=== PATIENT | female | born 1940 | race Caucasian/White ===

== ENCOUNTER 2016-04-28 21:10 | Inpatient (IN) | payer MEDICARE, BC ==
--- NOTE | ~2016-04-28 | TOC ---
Unit #: [id number] #: [id number] Patient: WATSON LUGO [id number] [address] [address] [id number] I MR#: [id number] NAME: WATSON LUGO. ROOM: 316 Age: 75 Sex: F Admission Date: 04/28/2016 : 1940 Attending Physician: Deb Valdez M.D. Primary Care Physician: Delmis Becerril M.D. TRANSFER OF CARE SUMMARY DISCHARGE DIAGNOSES 1. Infected left hip, status post incision and drainage of the left wound and removal of a cable plate. Currently, she has a drain. 2. Postoperative acute hypercapnic, hypoxic respiratory failure, currently on 6 liters. 3. Toxic metabolic encephalopathy with change in mental status. 4. Acute kidney injury. 5. Chronic diastolic heart failure. 6. Chronic obstructive pulmonary disease exacerbation. 7. Chronic anticoagulation on Coumadin. 8. Hypertension. 9. Anemia. 10. Mild protein malnutrition. 11. Diabetes mellitus type 2, uncontrolled. 12. Hypocalcemia. 13. History of coronary artery disease, status post CABG and stent. 14. Hyperlipidemia. 15. Gastroesophageal reflux disease. 16. Depression. 17. Arthritis. 18. Degenerative joint disease. CONSULTANTS 1. Dr. Urban. 2. Dr. Dietrich. 3. Dr. De Leon. PROCEDURES Incision and drainage of the left wound and removal of cable plate and drain placed. DIAGNOSTIC STUDIES LABORATORY: Glucose 208. Wound cultures negative. ABG pH 7.38, pCO2 49, pO2 72. INR 1.3. WBC 8.1, hemoglobin 8.0, platelets 237. Sodium 135, potassium 4.6, glucose 212, creatinine 1.1. LFTs normal. Albumin 2.7, magnesium 1.6. BNP 208. HOSPITAL COURSE This is a 75-year-old admitted on 04/25/2016 because of infected left hip. Patient was seen by orthopedics, Dr. Santoro. The patient had incision and drainage and removal of cable plate. Currently drain is placed. Dr. Santoro is closely following. Unit #: [id number] #: [id number] Patient: WATSON LUGO Acute hypercapnic, hypoxic respiratory failure postop. She was BiPAP, currently off BiPAP. She is on [address] Dietrich is closely following. Toxic metabolic encephalopathy postop with change in mental status, most likely secondary to sedation and opiates. Currently, she is alert and oriented x3. Acute kidney injury, prerenal. The patient received IV fluids, currently stable. Chronic diastolic heart failure. The patient did receive IV Lasix preop and postop because of acute respiratory failure. Currently compensated. COPD exacerbation. The patient received DuoNeb and IV Solu-Medrol. Continue with IV Solu-Medrol. Chronic anticoagulation, not sure why she has sick sinus syndrome and she has pacemaker. Continue Coumadin as per Orthopedics postop instructions. Mild protein malnutrition. Continue with high protein diet. Dictated by... Dwaine Sweeney/paulino TD: 05/04/2016 20:56 JOB #: [id number] TRANSFER OF CARE SUMMARY Page 1 of 1 X Deb Valdez MD TRANSFER OF CARE SUMMARY
--- NOTE | ~2016-04-28 | CO ---
Unit #: [id number] #: [id number] Patient: WATSON GUTHRIE [id number] [address] [place], [place] [address] [id number] I MR#: [id number] NAME: WATSON GUTHRIE. ROOM: 473 Age: 75 Sex: F Admission Date: 04/28/2016 : 1940 Attending Physician: Deb aVldez M.D. Primary Care Physician: Delmis Becerril M.D. Consultation Date: 04/29/2016 CONSULTATION REPORT CHIEF COMPLAINT Left hip pain and wound drainage. HISTORY OF PRESENT ILLNESS Ms. Guthrie is a 75-year-old female, patient of my former partner, Dr. Dereck Acuna, who has a complicated history regarding her left hip. Apparently, this all started back in 01/2015, in which she sustained a left intertrochanteric femur fracture, where she was originally treated at [facility]. She was seen and treated by Dr. Janet Bar, for which she underwent a left hip intramedullary nailing. Per family reports, the patient is a poor historian. The lag screw cut out through the femoral head and she was seen by Dr. Dereck Acuna, who performed a total hip arthroplasty on 02/23/2015. She reports that she really never did well following the surgery. She essentially would only walk household distances with a walker. She saw Dr. Acuna apparently several times in the office; although, I do not have access to my office notes at this point. She continued to have problems with her left foot, where she developed a contracture and has had difficulty bearing weight. She had been seen by Dr. Joiner in [place], who did get x-rays of her foot and she was diagnosed with a fracture in her foot, which was treated nonoperatively. She continued to do somewhat poorly until it seemed to get worse about 5 to 6 months ago, where she had a urinary tract infection, that subsequently receded her left hip per family report. Apparently, there was some difficulty getting into Dr. Acuna's office. She was placed on antibiotics for three weeks and her urinary tract infection weighs as well as hip improved, so the family elected that point the patient wished not to be messed with the hip, since she was doing better and was not seen by an orthopedic surgeon at that time. She apparently saw Dr. Joiner from [place], who recommend that the patient followup with Dr. Acuna. Last week ago on Sunday as her pgtvbusz-aa-ngp notes that the left leg was turning red in nature, she told her to keep an eye on it. Then, they got acutely worse on Sunday, where the redness gotten much more severe and the patient felt a pop in her hip and she could no longer walk. She was sent to [facility], where she was subsequently admitted and the orthopedic surgeon there were requested that she be transferred out to fellowship trained reconstructive surgeon regarding her infected total hip arthroplasty. She was found to have a draining sinus tract, significant swelling, and now complains of left additional foot pain. Dr. Santoro was contacted yesterday and accepted the patient for transfer with Medicine to admit. PAST MEDICAL HISTORY Significant for a history of coronary artery disease, status post coronary artery bypass and stent placement; hypertension; dyslipidemia; Unit #: [id number] #: [id number] Patient: CASE,WATSON Newton gastroesophageal reflux disease; depression; diabetes; arthritis; degenerative disk disease; arrhythmia. PAST SURGICAL HISTORY Includes coronary artery bypass grafting, appendectomy, hysterectomy, cholecystectomy, history of pacemaker ICD, history of left hip intramedullary nailing with subsequent failure to conversion total hip arthroplasty as noted above. SOCIAL HISTORY Used to smoke for 50 years one pack daily. She quit two years ago. Denies alcohol, illicit, or drug use. FAMILY HISTORY Noncontributory. HOME MEDICATIONS Reviewed include allopurinol, Amaryl, Coumadin, Bactrim, Tylenol, K-Dur, Coreg, Lasix, Remeron, amlodipine, Prozac, omeprazole, Zocor, and aspirin. REVIEW OF SYSTEMS Positive for left hip and left ankle pain. Other 12 systems are currently negative. PHYSICAL EXAMINATION GENERAL: Demonstrates an elderly female, who is currently not in any acute distress. She is awake and oriented x3; though, she is a poor historian. VITAL SIGNS: She is afebrile. Vital signs are stable. HEENT: Normocephalic and atraumatic. Extraocular movements intact. NECK: Trachea is midline. HEART: Regular rate and rhythm. ABDOMEN: Soft, nontender, nondistended. EXTREMITIES: Left hip demonstrates a draining sinus tract. It measures approximately 4 x 3 cm in size. She has contractures of her left foot in Equinus position and adducted. She is unable to dorsiflex to bring it back to neutral. She has significant tenderness to palpation over the medial border of her forefoot area. The sensation is intact distally. She is neurovascularly intact distally. IMPRESSION Infected left total hip arthroplasty with left foot pain with history of a remote fracture possible septic forefoot. PLAN I discussed the patient's history with her tysvzwqb-pr-ltt and got some additional history as noted above. We will go ahead and check some x-rays of her left hip. Check appropriate blood work, CRP, and sedimentation rate. We will continue with IV antibiotics. We reversed her Coumadin. Give her dose of vitamin K, and bridge her with Lovenox until surgery. Planned surgery date will be on Sunday afternoon by Dr. Santoro for resection arthroplasty and placement of antibiotic cement spacer. She is a minimal ambulator anyway since her hip reconstruction surgery. We will go ahead and check a chest x-ray, urine culture, and place a Hernadez catheter. Infectious Disease is already following, also order a PICC line to be placed. Thank you for the consultation. Unit #: [id number] #: [id number] Patient: PARISH,WATSON Newton Dictated by... Dwaine Newsome/oscar TD: 04/29/2016 13:17 JOB #: [id number] CONSULTATION REPORT Page 1 of 1 X Zheng De Leon MD CONSULTATION REPORT
--- NOTE | ~2016-04-28 | CR150 ---
[facility] A Service of [facility] & [facility] RADIOLOGY TEXT RESULTS PATIENT: WATSON LUGO LOCATION: [facility] 473-01 : 41 UNIT #: [id number] AGE: [address]: Deb Valdez MD SEX: F ORDER DR: [id number] [facility] [address] [place], [place] [address] [id number] I MR#: [id number] Acc #: [id number] NAME: WATSON LUGO. : 1940 SEX: F STUDY DATE/TIME: 04/29/2016 14:17 UNIT: [facility] ROOM: [facility] STUDY DESCRIPTION: CR Hip Min 2 Views Lt Attending Physician: Deb Valdez M.D. Ordering Physician: Zheng De Leon M.D. Primary Care Physician: Delmis Becerril M.D. MEDICAL IMAGING REPORT This report is preliminary unless electronic signature is present EXAM Left hip HISTORY 75-year-old female pain in left hip x1 week history states osteomyelitis. FINDINGS AP pelvis and cross-table lateral view of the left hip and pelvis demonstrates postoperative changes of left total hip arthroplasty. Femoral and acetabular components appear in expected position and alignment. There is also a claw fixation device overlying the greater trochanter and lateral hip with 2 cerclage wires. There is heterotopic ossification superior to the greater trochanter. Linear ossification is noted extending inferior from the hip joint. It is unclear whether this represents the remnants of a pelvic fracture or represents heterotopic ossification. This may be better assessed with CT if clinically indicated. Soft tissue calcifications also seen in the medial left thigh near the groin. Arterial vascular calcifications noted. Generalized osteopenia. IMPRESSION 1. Status post left total hip arthroplasty with a fixation device also within the proximal left femur. No evidence of instrumentation failure periprosthetic fracture or loosening. 2. Well-defined ossification along the inferior aspect of the left hip joint adjacent to the pubic bone. It is unclear whether this represents the sequelae of old fracture or represents heterotopic ossification. 3. No CT findings to suggest osteomyelitis though conventional radiographs are relatively insensitive. Dictated by... Sienna Sher M.D. [facility] A Service of [facility] RADIOLOGY TEXT RESULTS PATIENT: WATSON LUGO LOCATION: [facility] 473-01 : 41 UNIT #: [id number] AGE: [address]: Deb Valdez MD SEX: F ORDER DR: THIS IS AN ELECTRONICALLY VERIFIED REPORT Sienna Sher M.D. at 04/30/2016 10:51 PM SHARONA/natividad TD: 04/30/2016 05:36 JOB #: [id number] MEDICAL IMAGING REPORT Page 1 of 1 COPY
--- NOTE | ~2016-04-28 | CO ---
Unit #: [id number] #: [id number] Patient: WATSON LUGO [id number] [address] [address] [id number] I MR#: [id number] NAME: WATSON LUGO. ROOM: 473 Age: 75 Sex: F Admission Date: 04/28/2016 : 1940 Attending Physician: Deb Valdez M.D. Primary Care Physician: Delmis Becerril M.D. Consultation Date: 04/29/2016 CONSULTATION REPORT REASON FOR CONSULTATION Left hip infection. HISTORY OF PRESENT ILLNESS The patient is a 75-year-old female with multiple medical problems, including multiple left hip surgeries, last one was a year ago which according to the patient had a prosthetic joint placement. She was doing fine until about 3 weeks ago when left foot started to hurt, does not remember any acute injury. This injury started putting more pressure on the hip and then the hip started to hurt and then it became inflamed with increased pain, redness, swelling, and a small protrusion in the skin. Did not have any fevers chills, cough, congestion, nausea, vomiting, or diarrhea. She was admitted to [facility], but because of increased level of care including possible surgery on the left hip, she was transferred to [facility]. Dr. Santoro has been asked to see the patient. She has been on vancomycin and cefepime. During her stay at [facility], she was also found out to have acute renal injury and hyperkalemia. Right now, she is lying comfortably in bed and complaining of left hip pain. No nausea, vomiting, diarrhea, fevers, chills, cough, or congestion. PAST MEDICAL HISTORY 1. Coronary artery disease, status post coronary artery bypass grafting. 2. Hypertension. 3. Hyperlipidemia. 4. Gastroesophageal reflux disease. 5. Depression. 6. Diabetes. 7. Arthritis. 8. Degenerative joint disease. 9. Anticoagulation, reasons unknown. 10. Appendectomy. 11. Hysterectomy. 12. Multiple left hip surgeries. 13. History of pacemaker and AICD placement. 14. Cholecystectomy. SOCIAL HISTORY Noncontributory. FAMILY HISTORY Noncontributory. ALLERGIES Unit #: [id number] #: [id number] Patient: CASE,WATSON Newton To penicillin, reaction are unknown, but seems to be tolerating cefepime fairly well. CURRENT MEDICATIONS List reviewed. Antibiotics include vancomycin and cefepime. PHYSICAL EXAMINATION GENERAL: No distress. VITAL SIGNS: Temperature 98.3, pulse 88, respirations 20, blood pressure 152/47. HEENT: Unremarkable. Pupils are round, equal, and reactive to light and accommodation. Extraocular muscles are intact. CHEST: Clear to auscultation. HEART: Normal S1, S2. ABDOMEN: Soft, nontender. EXTREMITIES: Show left hip previous incision site in the middle. There is an outpouching with fluctuation, significant erythema, induration, and tenderness was noted. No open area or bleeding or drainage at this time. It was noted that the left ankle and left foot shows an obvious deformity with hallux avulsion and decreased range of motion on the ankle joint, although, no tenderness, swelling, erythema, or warmth was noted. DIAGNOSTIC STUDIES LABORATORY RESULTS: BUN 21, creatinine 1.1. LFTs are normal. Lactic acid 0.8. WBC 9.2, hemoglobin 10.3, platelets 251. No cultures so far. Records from [facility] were reviewed. ASSESSMENT Left hip prosthetic joint infection. PLAN At this time, the patient is tolerating appropriate antibiotics with empiric coverage with vancomycin and cefepime. We will monitor creatinine closely. Pharmacy is following for vancomycin dosing. We will get ESR and CRP. Follow up on orthopedic recommendations. Most likely, he will end up getting incision and debridement with the possibility of hardware explant. Further recommendation depending upon the course. I would like thank Dr. Nichols for asking us to participate in the care of this patient. We will follow this patient along with you. Dictated by... Dwaine Bhatti TD: 04/30/2016 00:48 JOB #: [id number] Unit #: [id number] #: [id number] Patient: CASE,WATSON Newton CONSULTATION REPORT Page 1 of 1 X Slade Urban MD CONSULTATION REPORT
--- NOTE | ~2016-04-28 | CR71 ---
[facility] A Service of [facility] & [facility] RADIOLOGY TEXT RESULTS PATIENT: WATSON LUGO LOCATION: [place] [id number] : 41 UNIT #: [id number] AGE: [address]: Deb Valdez MD SEX: F ORDER DR: [id number] [facility] [address] [place], [place] [address] [id number] I MR#: [id number] Acc #: [id number] NAME: WATSON LUGO. : 1940 SEX: F STUDY DATE/TIME: 05/03/2016 4:33 UNIT: [facility] ROOM: [facility] STUDY DESCRIPTION: CR Chest Single View Attending Physician: Deb Valdez M.D. Ordering Physician: Deb Valdez M.D. Primary Care Physician: Delmis Becerril M.D. MEDICAL IMAGING REPORT This report is preliminary unless electronic signature is present EXAM Frontal chest, 05/03/2016 INDICATION Low O2 sats in a 75-year-old female tonight, short of breath. TECHNIQUE Frontal chest COMPARISON 04/29/2016 FINDINGS New right-sided PICC line present and the tip extends to the cavoatrial junction level. Cardiac silhouette is enlarged but stable. Lung volumes are low. Bibasilar atelectasis or infiltrates, right greater than left. Small right effusion. Calcified granulomas are present. No pneumothorax. Chronic rib deformities on the left. IMPRESSION 1. New right-sided PICC line tip extends to the cavoatrial junction. No pneumothorax. 2. Cardiomegaly without distinct volume overload. 3. Right greater than left opacities suspicious for pneumonia or at least dense atelectasis on the right. Small right effusion. 4. Chronic rib deformities on the left. Dictated by... Cristopher Gonzales M.D. THIS IS AN ELECTRONICALLY VERIFIED REPORT Cristopher Gonzales M.D. at 05/03/2016 9:54 PM REECE/xochilt [facility] A Service of [facility] & [facility] RADIOLOGY TEXT RESULTS PATIENT: WATSON LUGO LOCATION: [address] : 41 UNIT #: [id number] AGE: [address]: Deb Valdez MD SEX: F ORDER DR: TD: 05/03/2016 08:33 JOB #: [id number] MEDICAL IMAGING REPORT Page 1 of 1 COPY
--- NOTE | ~2016-04-28 | HP ---
Unit #: [id number] #: [id number] Patient: PARISH,WATSON Newton [address] [place], [place] [address] [id number] I MR#: [id number] NAME: PARISH, WATSON Newton. ROOM: 473 Age: 75 Sex: F Admission Date: 04/28/2016 : 1940 Attending Physician: Deb Valdez M.D. Primary Care Physician: Delmis Becerril M.D. HISTORY AND PHYSICAL TENTATIVE REPORT CHIEF COMPLAINT Infected left hip. 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 She was admitted in the [facility] with infected hip with the diagnosis of infection around the left hip joint with acute kidney injury and hyperkalemia and the patient was seen, also, by orthopaedic surgeon who were there and that they felt the patient needs to be transferred to (1) hospital and they talked to the many different orthopaedic surgeons in [place] and [facility], [facility]. The patient was not accepted, eventually they talked to Dr. Lance Santoro, orthopaedic surgeon who accepted the patient here and then HIPS was called and the patient was admitted to HIPS service and she transferred here from [facility]. She is complaining of left hip and left leg pain but denies any other complaint. No chest pain. No nausea. No vomiting. No fever. PAST MEDICAL HISTORY 1. History of coronary artery disease previous coronary artery bypass graft and stent. 2. Hypertension. 3. Dyslipidemia. 4. Gastroesophageal reflux disease. 5. Depression. 6. Diabetes. 7. Arthritis. 8. Degenerative joint disease. 9. History of chronic anticoagulation, she does not know detail why she takes Coumadin. PAST SURGICAL HISTORY 1. History of coronary artery bypass grafting. 2. Appendectomy. 3. Hysterectomy. 4. Cholecystectomy. 5. History of pacemaker, AICD. Unit #: [id number] #: [id number] Patient: CASE,WATSON Newton SOCIAL HISTORY She used to smoke for fifty years, one pack daily. She said she quit two years ago, denies alcohol, denies illicit drug use. FAMILY HISTORY Noncontributory to pertinent case. HOME MEDICATIONS Is the followin. Allopurinol 100 mg daily 2. Amaryl 4 mg daily 3. Coumadin 2.5 mg daily 4. Bactrim DS one tablet b.i.d. 5. Tylenol 100 mg p.o. daily 6. K-Dur 20 mEq p.o. daily 7. Coreg 12.5 twice a day 8. 10 mg twice a day 9. Lasix 40 mg daily 10. Remeron 15 mg daily 11. Amlodipine 5 mg daily 12. Prozac 10 mg daily 13. Omeprazole 40 mg daily 14. Zocor 2 mg daily 15. Aspirin 81 mg daily REVIEW OF SYSTEMS Negative except as in history of present illness. PHYSICAL EXAMINATION GENERAL: Elderly female lying in the bed comfortably, currently not in any distress. She is alert, awake, and oriented x3, comfortable, not in any distress. VITAL SIGNS: Current vitals are the following, temperature 98.2, heart rate 78, respiratory rate 20, blood pressure 115/45, and oxygen 92%. HEENT EXAMINATION: Pupils equal reactive to light and accommodation. Head: Normocephalic and atraumatic. NECK: Supple. No jugular venous distention. HEART: S1 and S2, regular rate and rhythm. ABDOMEN: Soft, nontender, and nondistended. Bowel sounds are positive. EXTREMITIES: Inspection normal. No cyanosis, no clubbing, and no edema. NEUROLOGIC: No focal neurologic deficit. LEFT HIP: The left hip has a draining wound on left side. Laboratory workup is not done so far here. ASSESSMENT/PLAN 1. Infected left hip replacement with likely abscess formation, orthopaedic, Dr. Santoro to see, will continue with antibiotic, she was on initially in the [facility] on Zosyn and vancomycin, Zosyn which was discontinued and she was started on cefepime and vancomycin, continue vancomycin and cefepime, and ortho to evaluate, ID consult to also see. 2. Recent acute kidney injury in the [facility] start the patient on IV fluids and recheck electrolytes in the morning. 3. Hyperkalemia, potassium was 6.1 in the [facility] which has been corrected and will check the BMP. 4. History of coronary artery disease, previous coronary artery bypass Unit #: [id number] #: [id number] Patient: CASE,WATSON Newton grafting. 5. Hypertension. 6. Dyslipidemia. 7. Gastroesophageal reflux disease. 8. Depression. 9. Diabetes, will hold glimepiride and place on sliding scale. 10. Degenerative joint disease. 11. History of chronic anticoagulation for possibility of surgical intervention will hold the Coumadin. Repeat INR in the morning. Dictated by Dwaine Hernandez TD: 04/29/2016 08:54 JOB #: [id number] HISTORY AND PHYSICAL Page 1 of 1 X X HISTORY AND PHYSICAL
--- NOTE | ~2016-04-28 | CR144 ---
[facility] A Service of [facility] & [facility] RADIOLOGY TEXT RESULTS PATIENT: WATSON LUGO LOCATION: [facility] 473-01 : 41 UNIT #: [id number] AGE: [address]: Deb Valdez MD SEX: F ORDER DR: [id number] [facility] [address] [place], [place] [address] [id number] I MR#: [id number] Acc #: [id number] NAME: WATSON LUGO. : 1940 SEX: F STUDY DATE/TIME: 05/02/2016 14:33 UNIT: [facility] ROOM: [facility] STUDY DESCRIPTION: CR Hip 1 View Lt Attending Physician: Deb Valdez M.D. Ordering Physician: Lance Santoro M.D. Primary Care Physician: Delmis Becerril M.D. MEDICAL IMAGING REPORT This report is preliminary unless electronic signature is present EXAM Left hip one-view HISTORY Postop hip surgery. FINDINGS Single AP view of the left hip demonstrates total hip arthroplasty with components in satisfactory position. Surgical drain overlies the lateral margin of the hip and there are surgical skin pastor lateral to the hip. No fractures identified. Mild generalized demineralization. IMPRESSION Satisfactory postop appearance of left hip arthroplasty. Hip alignment is satisfactory. Dictated by... Srinath Mendoza M.D. THIS IS AN ELECTRONICALLY VERIFIED REPORT Srinath Mendoza M.D. at 05/02/2016 11:36 PM DFL/natividad TD: 05/02/2016 17:24 JOB #: [id number] MEDICAL IMAGING REPORT Page 1 of 1 COPY
--- NOTE | ~2016-04-28 | CR63 ---
[facility] A Service of [facility] RADIOLOGY TEXT RESULTS PATIENT: WATSON LUGO LOCATION: [facility] 473- : 41 UNIT #: [id number] AGE: [address]: Deb Valdez MD SEX: F ORDER DR: [id number] [facility] [address] [facility] [place], [place] [address] [id number] I MR#: [id number] Acc #: [id number] NAME: WATSON LUGO. : 1940 SEX: F STUDY DATE/TIME: 04/29/2016 14:31 UNIT: [facility] ROOM: [facility] STUDY DESCRIPTION: CR Chest 2 View Attending Physician: Deb Valdez M.D. Ordering Physician: Zheng De Leon M.D. Primary Care Physician: Delmis Becerril M.D. MEDICAL IMAGING REPORT This report is preliminary unless electronic signature is present EXAM 2 views of the chest COMPARISON May 14, 2013 May 12, 2013 INDICATIONS 75-year-old female with dyspnea for 1 week. FINDINGS There has been interval placement of a dual lead left chest pacemaker/defibrillator device. No evidence of complication is seen. Changes of median sternotomy and CABG again noted. Evaluation of the chest is limited by rightward patient rotation. There is likely persistent cardiomegaly. There is increased bilateral hilar fullness with slight increase in interstitial prominence throughout the lungs perhaps reflecting mild pulmonary vascular congestion/early interstitial edema. No evidence of pneumothorax, pleural effusion or consolidative pneumonia. IMPRESSION Cardiomegaly with increasing prominence of the pulmonary interstitium, perhaps reflecting mild pulmonary vascular congestion and/or pulmonary edema. No pleural effusion or evidence of acute pneumonia. Dictated by... Onel Cornelius M.D. THIS IS AN ELECTRONICALLY VERIFIED REPORT Onel Cornelius M.D. at 05/02/2016 12:25 AM AUSTEN/natividad TD: 04/30/2016 05:09 [facility] A Service of [facility] RADIOLOGY TEXT RESULTS PATIENT: WATSON LUGO LOCATION: [facility] 473-01 : 41 UNIT #: [id number] AGE: [address]: Deb Valdez MD SEX: F ORDER DR: JOB #: [id number] MEDICAL IMAGING REPORT Page 1 of 1 COPY
--- NOTE | ~2016-04-28 | OR ---
Unit #: [id number] #: [id number] Patient: WATSON LUGO [id number] [address] [place], [place] [address] [id number] I MR#: [id number] NAME: WATSON LUGO ROOM: [facility] Date of Procedure: 05/02/2016 Admission Date: 04/28/2016 Surgeon: Lance Santoro M.D. : 1940 Attending Physician: Deb Valdez M.D. Primary Care Physician: Delmis Becerril M.D. OPERATIVE REPORT PREOPERATIVE DIAGNOSIS Infected left hip. POSTOPERATIVE DIAGNOSIS Infected cable plate, the left hip. PROCEDURE PERFORMED Incision and drainage of hip wound and removal of cable plate. ASSISTANTS Giovanni and Ciaran. ANESTHESIA General. ESTIMATED BLOOD LOSS 300. DESCRIPTION OF PROCEDURE The patient was brought to the operating room, given a general anesthetic, placed in decubitus position with the left side up. Left hip was prepped and draped. She had a draining sinus. After this was done, the incision was opened. We ellipse the sinus tract and followed this down to the [place] cable plate on the lateral side of the femur. The two distal cables were cut and the plate was removed. After this was done, the area was debrided completely, soaked in Betadine and then irrigated with 3000 mL of bacitracin. The posterior capsule had not been opened. I could not find an area leading into the joint. I tried to aspirate the joint with an 18-gauge spinal needle and could feel the prosthesis, but there was no fluid in the joint. We then elected at this point because of her age and the possibility that the joint itself was not infected, just the plate. We elected to stop the procedure here, so the wound was closed over a drain using 0 and 2-0 Vicryl and pastor in the skin and her general anesthetic reversed. I did explain to the family that if her sedimentation rate and CRP do not come down or she continues to have problems, then we would have to remove the prosthesis from the left hip, but I elected at this point to stop just in case the hip joint itself was not infected. baking assistant, Jeff Davila was present throughout the entire case. Dictated by... Unit #: [id number] #: [id number] Patient: PARISH,WATSON Newton Dwaine Pérez/oscar TD: 05/03/2016 02:33 JOB #: [id number] OPERATIVE REPORT Page 1 of 1 X Lance Santoro MD X PROCEDURE OPERATIVE NOTE
--- NOTE | ~2016-04-28 | DS ---
Unit #: [id number] #: [id number] Patient: WATSON LUGO [id number] [address] [address] [id number] I MR#: [id number] NAME: WATSON LUGO. ROOM: 316 Age: 75 Sex: F Admission Date: 04/28/2016 : 1940 Discharge Date: 05/12/2016 Attending Physician: Kristina Still M.D. Primary Care Physician: Delmis Becerril M.D. DISCHARGE SUMMARY FINAL DIAGNOSES 1. Infected left hip, status post incision and drainage and removal of cable plate. 2. Postop acute hypercapnic/hypoxic respiratory failure, on oxygen. 3. Toxic metabolic encephalopathy. 4. Acute kidney injury. 5. Chronic diastolic heart failure. 6. Chronic obstructive pulmonary disease. SECONDARY DIAGNOSES 1. Chronic anticoagulation, on Coumadin. 2. Hypertension. 3. Anemia. 4. Protein calorie malnutrition. 5. Diabetes mellitus type 2, uncontrolled. 6. Hypocalcemia. 7. History of coronary artery disease, status post coronary artery bypass graft and stent. 8. Hyperlipidemia. 9. Gastroesophageal reflux disease. 10. Depression. 11. Arthritis. 12. Degenerative joint disease. CONSULTS 1. Dr. Urban - Infectious Disease. 2. Dr. Dietrich - Pulmonary. 3. Dr. De Leon - Orthopedics. PROCEDURE She had an I and D of the left hip wound and removal of cable plate and a drain was placed. HOSPITAL COURSE 75-year-old admitted on 04/28/16 because of infected left hip. The patient was seen by orthopedics, Dr. Santoro. The patient ended up having an I and D and removal of cable plate. She has been seen in conjunction with infectious disease, Dr. Urban and Dr. Abdul. Dr. Abdul asked patient to continue vancomycin IV as well as cefepime IV through 06/08/16. Anemia: Hemoglobin was somewhat stable. H and H done today, the day of discharge, is 8.5. Toxic metabolic encephalopathy: This was perioperatively and this seems Unit #: [id number] #: [id number] Patient: WATSON LUGO to have improved at this time. For her acute hypoxic/hypercapnic respiratory failure, postoperatively she was on BiPAP and she has been seen by pulmonary and is currently stable at this time. She also had diastolic heart failure which did play to her hypoxic respiratory failure for which she had diuretics as well. She is currently clinically anticoagulated and probably has multiple risk factors. However, she does have a pacemaker for sick sinus syndrome. INR yesterday was 1.6. Will check a stat PT/INR today. She will continue on 2/5 mg of Coumadin and this will be managed by the rehab physician. She was evaluated, suitable and stable for discharge. She will be discharged in stable condition. MEDICATIONS Medications on discharge include: 1. Percocet 5/325, one tablet p.o. q.6 hourly p.r.n. 2. Combivent inhaler q.6 p.r.n. shortness of air. 3. Combivent mini nebs 3 mL twice daily. 4. Prednisone 10 mg p.o. daily. 5. Tylenol 1000 mg p.o. at bedtime, 325 mg p.o. q.4 hourly p.r.n. 6. Coumadin 2.5 mg p.o. daily. 7. Prozac 10 mg p.o. daily. 8. Remeron 15 mg p.o. daily. 9. Benadryl 25 mg to 50 mg p.o. q.6 hourly p.r.n. itching. However, this drug is on the Beers list and should be used only very judiciously. 10. Coreg 12.5 mg p.o. twice daily. 11. Norvasc 5 mg p.o. daily. 12. Bisacodyl 10 mg pr daily p.r.n. constipation and 5 mg p.o. twice daily p.r.n. constipation. 13. Senokot-S, one tablet p.o. twice daily. 14. Milk of magnesia 30 mL q.6 hours p.r.n. constipation. 15. Lasix 40 mg p.o. daily. 16. Zocor 20 mg p.o. daily. 17. Lisinopril 10 mg p.o. twice daily. 18. Zyloprim 100 mg p.o. daily. 19. Aspirin 81 mg p.o. daily. 20. Omeprazole 40 mg p.o. daily. 21. Potassium 20 mEq p.o. daily. 22. Amaryl 4 mg p.o. before breakfast. 23. Florastor 250 mg p.o. b.i.d. for six weeks. She will be discharged in stable condition. Time spent coordinating discharge is about 40 minutes. Dictated by... Dwaine Marcelo Unit #: [id number] #: [id number] Patient: WATSON LUGO TD: 05/12/2016 12:48 JOB #: [id number] DISCHARGE SUMMARY Page 1 of 1 X Kristina Still MD X DISCHARGE SUMMARY
--- NOTE | ~2016-04-28 | CR126 ---
[facility] A Service of [facility] & [facility] RADIOLOGY TEXT RESULTS PATIENT: WATSON LUGO LOCATION: [facility] 473-01 : 41 UNIT #: [id number] AGE: [address]: Deb Valdez MD SEX: F ORDER DR: [id number] [facility] [address] [place], [place] [address] [id number] I MR#: [id number] Acc #: [id number] NAME: WATSON LUGO. : 1940 SEX: F STUDY DATE/TIME: 04/29/2016 14:23 UNIT: [facility] ROOM: [facility] STUDY DESCRIPTION: CR Foot Complete Min 3 View Lt Attending Physician: Deb Valdez M.D. Ordering Physician: Slade Urban M.D. Primary Care Physician: Delmis Becerril M.D. MEDICAL IMAGING REPORT This report is preliminary unless electronic signature is present EXAM 3 views of the left foot COMPARISON None. INDICATION 75-year-old female with left foot pain for 1 week. No known injury. FINDINGS Exam is markedly limited by severe osteopenia. Exam is also limited by imaging with toes extended. No evidence of acute fracture, dislocation or osteomyelitis is seen on the current exam. IMPRESSION Exam is markedly limited by diffuse osteopenia. If persistent concern for fracture or osteomyelitis, consider CT and/or MRI. No definite acute abnormality of the foot is seen on current exam. Dictated by... Onel Cornelius M.D. THIS IS AN ELECTRONICALLY VERIFIED REPORT Onel Cornelius M.D. at 05/02/2016 12:24 AM AUSTEN/natividad TD: 04/30/2016 04:58 JOB #: [id number] MEDICAL IMAGING REPORT Page 1 of 1 COPY
--- NOTE | ~2016-04-28 | CT90 ---
[facility] A Service of [facility] & [facility] RADIOLOGY TEXT RESULTS PATIENT: WATSON LUGO LOCATION: [facility] 473-01 : 41 UNIT #: [id number] AGE: [address]: Deb Valdez MD SEX: F ORDER DR: [id number] [facility] [address] [address] [facility] [place], [place] [address] [id number] I MR#: [id number] Acc #: [id number] NAME: WATSON LUGO. : 1940 SEX: F STUDY DATE/TIME: 04/30/2016 16:44 UNIT: [facility] ROOM: [facility] STUDY DESCRIPTION: CT Lower Ext Lt W Cont Attending Physician: Deb Valdez M.D. Ordering Physician: Zheng De Leon M.D. Primary Care Physician: Delmis Becerril M.D. MEDICAL IMAGING REPORT This report is preliminary unless electronic signature is present EXAM CT left lower extremity with contrast HISTORY Left foot pain for 1 week. No injury. Evaluate for cellulitis. TECHNIQUE This CT exam was performed with one or more of the following radiation dose reduction techniques: automatic exposure control, adjustment of mA and/or kV according to patient size, and iterative reconstruction. FINDINGS Thin section axial images were performed through the left foot following IV contrast. Multiplanar reconstructed images reviewed at a workstation. Examination demonstrates deformity of the foot with forefoot varus. Generalized osteopenia. No discrete fracture. Nonspecific sclerosis noted in multiple bones to include the talus and medial cuneiform nonspecific, potentially could represent areas of bone infarction. Mild soft tissue swelling, edema and skin thickening in the lower extremity nonspecific could be indicative of cellulitis. No focal fluid collections. Visualized ankle tendons unremarkable. IMPRESSION 1. Generalized osteopenia lower extremity may be related to underlying osteoporosis. 2. No evidence of an occult fracture. 3. Generalized soft tissue swelling and edema lower extremity could be indicative of cellulitis but no drainable fluid collection or abscess. Dictated by... Sienna Shre M.D. THIS IS AN ELECTRONICALLY VERIFIED REPORT [facility] A Service of [facility] & [facility] RADIOLOGY TEXT RESULTS PATIENT: WATSON LUGO LOCATION: [place] [address] : 41 UNIT #: [id number] AGE: [address]: Deb Valdez MD SEX: F ORDER DR: Sienna Sher M.D. at 05/01/2016 10:06 AM Leann TD: 05/01/2016 09:11 JOB #: [id number] MEDICAL IMAGING REPORT Page 1 of 1 COPY
--- NOTE | ~2016-04-28 | XA166 ---
[facility] A Service of [facility] RADIOLOGY TEXT RESULTS PATIENT: WATSON LUGO LOCATION: [facility] 473-01 : 41 UNIT #: [id number] AGE: [address]: Deb Valdez MD SEX: F ORDER DR: [id number] [facility] [address] [facility] [place], [place] [address] [id number] I MR#: [id number] Acc #: [id number] NAME: WATSON LUGO. : 1940 SEX: F STUDY DATE/TIME: 05/01/2016 12:04 UNIT: [facility] ROOM: [facility] STUDY DESCRIPTION: XA PICC Line Placement WO Port Attending Physician: Deb Valdez M.D. Ordering Physician: Zheng De Leon M.D. Primary Care Physician: Delmis Becerril M.D. MEDICAL IMAGING REPORT This report is preliminary unless electronic signature is present EXAM Right-sided PICC line placement. INDICATIONS Need for IV access in a patient with cellulitis of the left lower extremity and foot pain for 1 week PRE-PROCEDURE The procedure was explained to the patient and/or patient eligibility services representative including risks, benefits, potential complications and potential for alternative forms of treatment. Informed consent was obtained, and prior to initiating the procedure a formal timeout procedure was performed. PROCEDURE Using full standard sterile barrier technique, including caps, gowns, gloves, masks, as well as sterile skin preparation and standard sterile draping, the right arm was prepped and draped in the usual fashion, and real-time sterile ultrasound guidance was used to localize an arm vein and to confirm vessel patency. A hard copy ultrasound image was recorded. After local anesthesia with 1% Xylocaine, the vein was punctured using real-time sterile ultrasound guidance, and an 0.018 guidewire was advanced into the superior vena cava, using fluoroscopic guidance. A 4-Honduran single-lumen PICC was then measured and deployed with the tip positioned in the superior vena cava. The position of the line was documented with a radiographic image. The line was secured in place with an adhesive dressing and an antibiotic patch was applied. Total fluoro time was 0.1 minutes. AKA was 1 mGy. IMPRESSION Successful placement of a 4-Honduran single-lumen PowerPICC via the arm under ultrasound and fluoroscopic guidance. The tip of the PICC is in good position in the superior vena cava. [facility] A Service of [facility] RADIOLOGY TEXT RESULTS PATIENT: WATSON LUGO LOCATION: [place] [address] : 41 UNIT #: [id number] AGE: [address]: Deb Valdez MD SEX: F ORDER DR: Dictated by... Maria L Robbins M.D. THIS IS AN ELECTRONICALLY VERIFIED REPORT Maria L Robbins M.D. at 05/02/2016 3:43 PM AFF/bd TD: 05/02/2016 12:06 JOB #: [id number] MEDICAL IMAGING REPORT Page 1 of 1 COPY
--- NOTE | ~2016-04-28 | CO ---
Unit #: [id number] #: [id number] Patient: WATSON LUGO [id number] [address] [address] [id number] I MR#: [id number] NAME: WATSON LUGO. ROOM: [facility] Age: 75 Sex: F Admission Date: 04/28/2016 : 1940 Attending Physician: Deb Valdez M.D. Primary Care Physician: Delmis Becerril M.D. CONSULTATION REPORT REASON FOR CONSULTATION Critical care management, respiratory failure. CHIEF COMPLAINT Shortness of breath and hypoxia. This patient basically is a 75-year-old female who has a past medical history significant for likely COPD and congestive heart failure, presented with infected hip and has had a surgery done with revision. Had a left hip surgery, found to be hypoxic and is in respiratory acidosis this morning. I am seeing the patient at bedside. She is on BiPAP and complaining of shortness of breath. REVIEW OF SYSTEMS Unobtainable because of patient being on BiPAP. PAST MEDICAL HISTORY 1. Coronary artery disease. 2. Hypertension. 3. Dyslipidemia. 4. Gastroesophageal reflux disease. 5. Depression. 6. Diabetes. 7. Arthritis. 8. Degenerative joint disease. 9. History of chronic anticoagulation. SURGICAL HISTORY 1. Coronary artery bypass. 2. Appendectomy. 3. Pacemaker. 4. AICD placement. SOCIAL HISTORY Positive for smoking. No alcohol, no drug abuse. FAMILY HISTORY None as per record. MEDICATIONS 1. Allopurinol. 2. Amaryl. 3. Coumadin. 4. Bactrim. Unit #: [id number] #: [id number] Patient: WATSON LUGO 5. Tylenol. 6. K-Dur. 7. Coreg. 8. Lasix. 9. Remeron. 10. Amlodipine. 11. Prozac. 12. Omeprazole. 13. Zocor. 14. Aspirin. REVIEW OF SYSTEMS Positive pallor. No edema, no cyanosis, no jaundice. The rest as per History of Present Illness. The rest of the twelve point review of systems has been reviewed and is negative. PHYSICAL EXAMINATION VITAL SIGNS: Current temperature is 98, pulse 93, respirations 20, blood pressure 101/45. NEUROLOGICAL: She is awake, alert, follows commands. CVS: S1+ S2. RESPIRATIONS: Bilateral rhonchi. GI: Nontender, soft. Bowel sounds positive. DIAGNOSTIC STUDIES LABORATORY: BUN 17, creatinine 0.9, pH is 7.17, pCO2 is 85. Magnesium is 1.5. Her white count is 9, hemoglobin 8, hematocrit 27, platelet count is 243. MEDICATIONS Her current medications include: 1. Vancomycin. 2. Solu-Medrol. 3. Duo-Nebs. 4. Zestril. 5. Senokot. 6. Milk of magnesia. 7. Furosemide. 8. Maxipime. 9. NovoLog. 10. Lipitor. 11. Tylenol. 12. Coreg. 13. Aspirin. ASSESSMENT AND PLAN 1. Acute hypercapnic/hypoxic respiratory failure. 2. Acute exacerbation of chronic obstructive pulmonary disease. 3. Acute bronchitis. 4. Rule out aspiration. 5. Infected hip. 6. Sepsis. 7. Critically ill patient. 8. History of cardiomyopathy, status post automatic implantable cardioverter defibrillator. 9. History of acute kidney injury which is resolved. Plan is to continue patient on oxygen, bronchodilator, GI/DVT prophylaxis Unit #: [id number] #: [id number] Patient: WATSON LUGO and continue BiPAP, IV steroids, IV antibiotics. Repeat blood gas. Will need a noncontrast CT of the chest, procalcitonin level, ProBNP and troponin. Will also request 2D echo as well. The patient will be closely monitored. Please see orders for detailed plan. Thank you very much for this consultation. Total critical care time is 65 minutes. Dictated by... Ryan Dietrich M.D. Gwen TD: 05/03/2016 09:18 JOB #: [id number] CONSULTATION REPORT Page 1 of 1 X Ryan Dietrich MD CONSULTATION REPORT
--- NOTE | ~2016-04-28 | CR72 ---
[facility] A Service of [facility] & [facility] RADIOLOGY TEXT RESULTS PATIENT: WATSON LUGO LOCATION: [place] [id number] : 41 UNIT #: [id number] AGE: [address]: Deb Valdez MD SEX: F ORDER DR: [id number] [facility] [address] [facility] [place], [place] [address] [id number] I MR#: [id number] Acc #: [id number] NAME: WATSON LUGO. : 1940 SEX: F STUDY DATE/TIME: 05/04/2016 5:19 UNIT: [facility] ROOM: [facility] STUDY DESCRIPTION: CR Chest Single View Portable Attending Physician: Deb Valdez M.D. Ordering Physician: Ryan Dietrich M.D. Primary Care Physician: Delmis Becerril M.D. MEDICAL IMAGING REPORT This report is preliminary unless electronic signature is present EXAM Portable chest 05/04/2016 INDICATION Shortness of air, low oxygen saturation, follow up infiltrate. COMPARISON 05/03/2016. FINDINGS Today's portable view of the chest is compared with yesterday's study. There is a patchy 5-6 cm area of density in the right base which is probably unchanged from the prior study consistent with pneumonia. The heart size is normal. The pacemaker and PIC catheter are stable. Dictated by... Miguel Hoyt M.D. THIS IS AN ELECTRONICALLY VERIFIED REPORT Miguel Hoyt M.D. at 05/04/2016 12:29 PM PARESH/corrie TD: 05/04/2016 08:48 JOB #: [id number] MEDICAL IMAGING REPORT Page 1 of 1 COPY
--- NOTE | ~2016-04-28 | A ---
[facility] Nutrition Therapy DATE: 05/08/16 Patient: WATSON Newton CASE Physician: LORRAINE Address: [address] [place] [address] Room/Bed: [address] [place] [address], Zip: [place] [address] Admit Date: 04/28/16 Date of : 41 Height: 5 2 Weight: 134 61.2 NUTRITIONAL ASSESSMENT: REASON: LOS NUTRITION ASSESSMENT 75 yo female admitted for infected left hip now s/p I&D PMH: Chronic heart failure, COPD, GERD, HTN, HLD, anemia, DM, CAD s/p CABG Anthropometrics: Ht: 62" Wt: 59.5 kg BMI: 24 Labs: Gluc 222 BUN 40 Ca++ 8.3 Accuchecks 239-246 Meds: Solu-medrol, novolog, furosemide, senokot, MOM, bisacodyl, zofran, lipitor, protonix, remeron I/O & Bowel function: 960/3325, last BM 05/06 Skin Integrity: Bruises scattered BLE/ BUE Dry/ flaky skin all over Closed surgical incision to left hip Edema: BLE trace Left hip generalized Diet: Consistent carbohydrate Assessment: Chart reviewed, events noted. Pt seen for LOS nutrition assessment. RD spoke with the pt at bedside. Pt reports having a "great" appetite, and consuming 75-100% of meals. Pt denies having any recent weight loss, and does not have any questions regarding her diet. Elevated blood sugars noted. Dx: N/A Intervention: 1. Consistent carbohydrate diet Monitoring, Evaluation and Goals: 1. Oral intake; tolerate >50-75% of meals 2. Labs; WNL: glucose Recommendations: 1. Continue consistent carbohydrate diet as tolerated. [facility] Nutrition Therapy DATE: 05/08/16 Patient: WATSON Newton CASE Physician: LORRAINE Address: [address] [place] [address] Room/Bed: [address] [place] [address], Zip: [place] [address] Admit Date: 04/28/16 Date of : 41 Height: 5 2 Weight: 134 61.2 2. Optimize the pt's insulin regimen d/t elevated blood glucose levels. Pt is at mild nutritional risk. Respectfully, KATIE MCINTYRE RD, LD [facility] cc: client file
--- NOTE | ~2016-04-28 | CR20 ---
[facility] A Service of [facility] RADIOLOGY TEXT RESULTS PATIENT: WATSON LUGO LOCATION: [place] [address] : [birth year] UNIT #: [id number] AGE: [address]: Deb Valdez MD SEX: F ORDER DR: [id number] [facility] [address] [place], [place] [address] [id number] MR#: [id number] #: [id number] NAME: WATSON LUGO. : 1940 SEX: F STUDY DATE/TIME: 04/29/2016 14:21 [facility] ROOM: [facility] STUDY DESCRIPTION: CR Ankle Min 3 Views Lt Attending Physician: Deb Valdez M.D. Ordering Physician: Slade Urban M.D. Primary Care Physician: Delmis Becerril M.D. MEDICAL IMAGING REPORT This report is preliminary unless electronic signature is present EXAM Left ankle, 3 views COMPARISON 3 views of the left foot on the same date. INDICATIONS 75-year-old female with left ankle pain for 1 week. No known injury. FINDINGS Exam is markedly limited by severe osteopenia. The bones appear anatomically aligned. No convincing evidence of acute fracture. No convincing evidence of osseous destruction. There are arterial calcifications in the lower leg. IMPRESSION Markedly limited exam due to severe osteopenia. No convincing evidence of acute fracture, dislocation or focal osseous destruction. If persistent concern for fracture or osteomyelitis consider CT evaluation or possibly MRI. Dictated by... Onel Cornelius M.D. THIS IS AN ELECTRONICALLY VERIFIED REPORT Onel Cornelius M.D. at 05/02/2016 12:24 AM AUSTEN/natividad TD: 04/30/2016 04:54 JOB #: [id number] [facility] A Service of [facility] RADIOLOGY TEXT RESULTS PATIENT: WATSON LUGO LOCATION: [place] [address] : [birth year] UNIT #: [id number] AGE: [address]: Deb Valdez MD SEX: F ORDER DR: MEDICAL IMAGING REPORT Page 1 of 1 COPY
--- NOTE | ~2016-04-28 | EKG ---
PATIENT: WATSON LUGO UNIT #: [id number] Ventricular Rate: 79 BPM Atrial Rate: 79 BPM P-R Interval: 150 ms QRS Duration: 110 ms Q-T Interval: 388 ms QTC Calculation(Bezet): 444 ms P Bennett: 114 degrees Calculated R Bennett: 62 degrees Calculated T Bennett: 102 degrees Diagnosis Line: Sinus rhythm with frequent Premature ventricular Diagnosis Line: complexes Diagnosis Line: Nonspecific T wave abnormality Baseline wander Diagnosis Line: Abnormal ECG Diagnosis Line: No previous ECGs available Diagnosis Line: Confirmed by ULISES PAT MD ([id number]) on 05/01/2016 Diagnosis Line: 10:54:37 PM INTERPRETING MD: BI SANDS
[2016-04-28] MEDS ORDERED: PROZAC10 MG PO (21:16)
[2016-04-28] MEDS ORDERED: AMLODIPINE BESYL5 MG PO (21:16)
[2016-04-28] MEDS ORDERED: ZOCOR20 MG PO (21:17)
[2016-04-28] MEDS ORDERED: ASPIRIN81 MG PO (21:17)
[2016-04-28] MEDS ORDERED: OMEPRAZOLE40 M1 PO (21:17)
[2016-04-28] MEDS ORDERED: K-DUR20 ME1 PO (21:19)
[2016-04-28] MEDS ORDERED: COREG12.5 MG PO (21:19)
[2016-04-28] MEDS ORDERED: REMERON15 MG PO (21:20)
[2016-04-28] MEDS ORDERED: LISINOPRIL10 MG PO (21:20)
[2016-04-28] MEDS ORDERED: FUROSEMIDE40 MG PO (21:20)
[2016-04-28] MEDS ORDERED: AMARYL PO (21:21)
[2016-04-28] MEDS ORDERED: ZYLOPRIM100 MG PO (21:21)
[2016-04-28] MEDS ORDERED: COUMADIN2.5 MG PO (21:22)
[2016-04-28] MEDS ORDERED: BACTRIM 400-801 TA1 PO (21:23)
[2016-04-28] MEDS ORDERED: ACETAMINOPHEN500 M6 PO (21:24)
[2016-04-29 03:13] LABS: BASOPHIL# 0.1 X10e3 (0-0.3); BASOPHIL% 0.8 % (0-2.5); EOSINOPHIL# 0.4 X10e3 (0-0.7); EOSINOPHIL% 4.9 % (0.0-7.0); HEMATOCRIT 33.1 % (35.0-45.0); HEMOGLOBIN 10.3 gm/dL (12.0-16.0); LYMPHOCYTE# 2.5 X10e3 (1.0-3.5); LYMPHOCYTE% 27.5 % (17.0-45.0); MEAN CORPUSCULAR HGB CONC 31.1 g/dL (30-36); MEAN PLATELET VOLUME 7.2 FL (6.5-11.5); MONOCYTE# 0.8 X10e3 (0-1.0); MONOCYTE% 9.2 % (3.0-12.0); NEUTROPHIL# 5.3 X10e3 (1.5-7.1); NEUTROPHIL% 57.6 % (40-75); PLATELET COUNT 251 X10e3 (140-420); RED BLOOD COUNT 3.68 X10e (3.90-5.30); RED CELL DISTRIBUTION WIDTH 15.2 % (11.0-15.5); WHITE BLOOD COUNT 9.2 X10e3 (4.0-10.5)
[2016-04-29 03:14] LABS: DIFF IND NO
[2016-04-29 03:46] LABS: PROTHROMBIN TIME (PATIENT) 21.4 SECONDS (9.6-11.5)
[2016-04-29 03:55] LABS: ALBUMIN SERUM 3.1 g/dL (3.5-5.0); BILIRUBIN,TOTAL 0.5 mg/dL (0.2-2.0); BUN/CREATININE RATIO 19.09; CALCIUM SERUM 8.8 mg/dL (8.4-10.2); CREATININE SERUM 1.1 mg/dL (0.6-1.4); GLOM FILT RATE Estimated 49.4 mL/min (>60); POTASSIUM 4.6 mmol/L (3.5-5.1); PROTEIN TOTAL SERUM 6.7 g/dL (6.0-8.3)
[2016-04-29 14:26] LABS: URINE APPEARANCE CLEAR; URINE BILIRUBIN NEG (NEG); URINE BLOOD TRACE (NEG); URINE COLOR YELLOW; URINE GLUCOSE NEG (NEG); URINE KETONE NEG (NEG); URINE LEUKOCYTE ESTERASE NEG (NEG); URINE NITRATE NEG (NEG); URINE PH 5.5 (5-8); URINE PROTEIN NEG (NEG); URINE UROBILINOGEN 0.2 MG/DL (NEG)
[2016-04-29 14:29] LABS: U HYALINE CASTS AUWI 0-2 /[LPF]; URINE BACTERIA AUWI NEG (NEGATIVE); URINE SQUAMOUS EPITHELIAL CELL NONE SEEN /[HPF]; UWBCS1 AUWI 0-2 (0-5)
[2016-04-30 02:30] LABS: BASOPHIL# 0.1 X10e3 (0-0.3); BASOPHIL% 0.8 % (0-2.5); DIFF IND NO; EOSINOPHIL# 0.4 X10e3 (0-0.7); EOSINOPHIL% 4.5 % (0.0-7.0); HEMATOCRIT 29.9 % (35.0-45.0); HEMOGLOBIN 9.6 gm/dL (12.0-16.0); LYMPHOCYTE# 1.6 X10e3 (1.0-3.5); LYMPHOCYTE% 19.1 % (17.0-45.0); MEAN CELL VOLUME 90.2 FL (83-96); MEAN CORPUSCULAR HEMOGLOBIN 28.9 PG (28-34); MEAN CORPUSCULAR HGB CONC 32.1 g/dL (30-36); MEAN PLATELET VOLUME 7.5 FL (6.5-11.5); MONOCYTE# 0.6 X10e3 (0-1.0); MONOCYTE% 7.1 % (3.0-12.0); NEUTROPHIL# 5.9 X10e3 (1.5-7.1); NEUTROPHIL% 68.5 % (40-75); PLATELET COUNT 221 X10e3 (140-420); RED BLOOD COUNT 3.32 X10e (3.90-5.30); RED CELL DISTRIBUTION WIDTH 14.9 % (11.0-15.5); WHITE BLOOD COUNT 8.6 X10e3 (4.0-10.5)
[2016-04-30 02:44] LABS: INR 1.3; PROTHROMBIN TIME (PATIENT) 13.4 SECONDS (9.6-11.5)
[2016-04-30 03:12] LABS: ALBUMIN SERUM 2.6 g/dL (3.5-5.0); BILIRUBIN,TOTAL 0.6 mg/dL (0.2-2.0); BUN/CREATININE RATIO 17.5; CALCIUM SERUM 8.2 mg/dL (8.4-10.2); CREATININE SERUM 0.8 mg/dL (0.6-1.4); GLOM FILT RATE Estimated 72.7 mL/min (>60); POTASSIUM 4.1 mmol/L (3.5-5.1); PROTEIN TOTAL SERUM 5.8 g/dL (6.0-8.3)
[2016-05-01 04:33] LABS: BASOPHIL# 0.1 X10e3 (0-0.3); BASOPHIL% 0.7 % (0-2.5); EOSINOPHIL# 0.6 X10e3 (0-0.7); EOSINOPHIL% 6.6 % (0.0-7.0); HEMATOCRIT 30.3 % (35.0-45.0); HEMOGLOBIN 9.7 gm/dL (12.0-16.0); LYMPHOCYTE# 1.8 X10e3 (1.0-3.5); LYMPHOCYTE% 20.7 % (17.0-45.0); MEAN CELL VOLUME 90.4 FL (83-96); MEAN CORPUSCULAR HGB CONC 32.1 g/dL (30-36); MEAN PLATELET VOLUME 7.5 FL (6.5-11.5); MONOCYTE# 0.6 X10e3 (0-1.0); MONOCYTE% 7.5 % (3.0-12.0); NEUTROPHIL# 5.6 X10e3 (1.5-7.1); NEUTROPHIL% 64.5 % (40-75); PLATELET COUNT 238 X10e3 (140-420); RED BLOOD COUNT 3.35 X10e (3.90-5.30); RED CELL DISTRIBUTION WIDTH 15.3 % (11.0-15.5); WHITE BLOOD COUNT 8.6 X10e3 (4.0-10.5)
[2016-05-01 04:36] LABS: DIFF IND NO
[2016-05-01 04:59] LABS: INR 1.1; PROTHROMBIN TIME (PATIENT) 11.4 SECONDS (9.6-11.5)
[2016-05-01 05:04] LABS: ALBUMIN SERUM 2.6 g/dL (3.5-5.0); BILIRUBIN,TOTAL 0.4 mg/dL (0.2-2.0); BUN/CREATININE RATIO 18.75; CALCIUM SERUM 8.4 mg/dL (8.4-10.2); CREATININE SERUM 0.8 mg/dL (0.6-1.4); GLOM FILT RATE Estimated 72.7 mL/min (>60); POTASSIUM 4.5 mmol/L (3.5-5.1); PROTEIN TOTAL SERUM 6.2 g/dL (6.0-8.3)
[2016-05-02 05:12] LABS: HEMATOCRIT 31.4 % (35.0-45.0); MEAN CELL VOLUME 90.5 FL (83-96); MEAN CORPUSCULAR HEMOGLOBIN 28.9 PG (28-34); MEAN CORPUSCULAR HGB CONC 31.9 g/dL (30-36); MEAN PLATELET VOLUME 7.3 FL (6.5-11.5); RED BLOOD COUNT 3.47 X10e (3.90-5.30); RED CELL DISTRIBUTION WIDTH 15.4 % (11.0-15.5)
[2016-05-02 07:00] LABS: ALBUMIN SERUM 2.7 g/dL (3.5-5.0); BILIRUBIN,TOTAL 0.4 mg/dL (0.2-2.0); BUN/CREATININE RATIO 21.42; CALCIUM SERUM 8.6 mg/dL (8.4-10.2); CREATININE SERUM 0.7 mg/dL (0.6-1.4); GLOM FILT RATE Estimated 85.4 mL/min (>60); POTASSIUM 4.3 mmol/L (3.5-5.1); PROTEIN TOTAL SERUM 6.4 g/dL (6.0-8.3)
[2016-05-03 04:33] LABS: HEMATOCRIT 27.7 % (35.0-45.0); HEMOGLOBIN 8.8 gm/dL (12.0-16.0); MEAN CELL VOLUME 90.9 FL (83-96); MEAN CORPUSCULAR HEMOGLOBIN 28.9 PG (28-34); MEAN CORPUSCULAR HGB CONC 31.8 g/dL (30-36); MEAN PLATELET VOLUME 6.8 FL (6.5-11.5); RED BLOOD COUNT 3.05 X10e (3.90-5.30); RED CELL DISTRIBUTION WIDTH 15.3 % (11.0-15.5); WHITE BLOOD COUNT 9.1 X10e3 (4.0-10.5)
[2016-05-03 04:48] LABS: PROTHROMBIN TIME (PATIENT) 10.7 SECONDS (9.6-11.5)
[2016-05-03 04:58] LABS: BUN/CREATININE RATIO 18.88; CREATININE SERUM 0.9 mg/dL (0.6-1.4); MAGNESIUM 1.5 mg/dL (1.6-3.0); POTASSIUM 4.9 mmol/L (3.5-5.1)
[2016-05-03 07:44] LABS: ARTERIAL BLD GAS O2 SATURATION 94.3 % (90.0-100.0); ARTERIAL BLOOD GAS CARBOXY HB 0.9 %sat (0.0-9.0); ARTERIAL BLOOD GAS HCO3 31.9 mmol/L; ARTERIAL BLOOD GAS PO2 85.1 mmHg (80.0-100)
[2016-05-03 07:46] LABS: ARTERIAL BLOOD GAS pH 7.179 (7.350-7.450)
[2016-05-03 07:47] LABS: ARTERIAL BLOOD GAS ALLEN TEST POS; ARTERIAL BLOOD GAS ART SITE RIGHT RADIAL; ARTERIAL BLOOD GAS DELIVERY NASAL CANNULA; ARTERIAL BLOOD GAS PCO2 85.6 mmHg (35.0-45.0); ARTERIAL DRAW? YES
[2016-05-03 10:13] LABS: ARTERIAL BLD GAS O2 SATURATION 94.4 % (90.0-100.0); ARTERIAL BLOOD GAS CARBOXY HB 0.8 %sat (0.0-9.0); ARTERIAL BLOOD GAS HCO3 31.5 mmol/L; ARTERIAL BLOOD GAS MET HB 0.8 %sat (0.0-2.0); ARTERIAL BLOOD GAS pH 7.252 (7.350-7.450)
[2016-05-03 10:14] LABS: ARTERIAL BLOOD GAS PCO2 71.7 mmHg (35.0-45.0); ARTERIAL BLOOD GAS PO2 78.5 mmHg (80.0-100)
[2016-05-03 10:15] LABS: ARTERIAL BLOOD GAS ART SITE LEFT BRACHIAL; ARTERIAL BLOOD GAS DELIVERY BIPAP 20/5; ARTERIAL DRAW? YES
[2016-05-04 03:59] LABS: BASOPHIL% 0.1 % (0-2.5); DIFF IND NO; HEMATOCRIT 24.8 % (35.0-45.0); LYMPHOCYTE# 0.6 X10e3 (1.0-3.5); LYMPHOCYTE% 7.8 % (17.0-45.0); MEAN CELL VOLUME 90.1 FL (83-96); MEAN CORPUSCULAR HEMOGLOBIN 29.1 PG (28-34); MEAN CORPUSCULAR HGB CONC 32.3 g/dL (30-36); MEAN PLATELET VOLUME 7.6 FL (6.5-11.5); MONOCYTE# 0.2 X10e3 (0-1.0); NEUTROPHIL# 7.2 X10e3 (1.5-7.1); NEUTROPHIL% 89.1 % (40-75); PLATELET COUNT 237 X10e3 (140-420); RED BLOOD COUNT 2.75 X10e (3.90-5.30); RED CELL DISTRIBUTION WIDTH 15.3 % (11.0-15.5); WHITE BLOOD COUNT 8.1 X10e3 (4.0-10.5)
[2016-05-04 04:24] LABS: ALBUMIN SERUM 2.7 g/dL (3.5-5.0); BILIRUBIN,TOTAL 0.4 mg/dL (0.2-2.0); BUN/CREATININE RATIO 21.81; CALCIUM SERUM 8.1 mg/dL (8.4-10.2); CREATININE SERUM 1.1 mg/dL (0.6-1.4); GLOM FILT RATE Estimated 49.4 mL/min (>60); MAGNESIUM 1.6 mg/dL (1.6-3.0); POTASSIUM 4.6 mmol/L (3.5-5.1); PROTEIN TOTAL SERUM 6.2 g/dL (6.0-8.3)
[2016-05-04 04:26] LABS: ARTERIAL BLD GAS O2 SATURATION 94.7 % (90.0-100.0); ARTERIAL BLOOD GAS CARBOXY HB 0.4 %sat (0.0-9.0); ARTERIAL BLOOD GAS HCO3 29.6 mmol/L; ARTERIAL BLOOD GAS MET HB 0.9 %sat (0.0-2.0); ARTERIAL BLOOD GAS PCO2 49.8 mmHg (35.0-45.0); ARTERIAL BLOOD GAS pH 7.382 (7.350-7.450)
[2016-05-04 04:31] LABS: INR 1.3
[2016-05-04 04:37] LABS: ARTERIAL BLOOD GAS ALLEN TEST NORMAL; ARTERIAL BLOOD GAS ART SITE LEFT RADIAL; ARTERIAL BLOOD GAS DELIVERY BIPAP 20/5; ARTERIAL BLOOD GAS PO2 72.1 mmHg (80.0-100); ARTERIAL DRAW? YES
[2016-05-05 07:10] LABS: HEMATOCRIT 24.3 % (35.0-45.0); HEMOGLOBIN 8.3 gm/dL (12.0-16.0); LYMPHOCYTE# 0.8 X10e3 (1.0-3.5); LYMPHOCYTE% 7.5 % (17.0-45.0); MEAN CELL VOLUME 89.7 FL (83-96); MEAN CORPUSCULAR HEMOGLOBIN 30.8 PG (28-34); MEAN CORPUSCULAR HGB CONC 34.3 g/dL (30-36); MEAN PLATELET VOLUME 7.8 FL (6.5-11.5); MONOCYTE# 0.4 X10e3 (0-1.0); MONOCYTE% 3.9 % (3.0-12.0); NEUTROPHIL% 88.6 % (40-75); PLATELET COUNT 285 X10e3 (140-420); RED BLOOD COUNT 2.71 X10e (3.90-5.30); RED CELL DISTRIBUTION WIDTH 15.7 % (11.0-15.5); WHITE BLOOD COUNT 10.1 X10e3 (4.0-10.5)
[2016-05-05 07:19] LABS: DIFF IND NO
[2016-05-05 07:24] LABS: INR 1.9; PROTHROMBIN TIME (PATIENT) 20.9 SECONDS (9.6-11.5)
[2016-05-05 07:58] LABS: ALBUMIN SERUM 2.5 g/dL (3.5-5.0); BILIRUBIN,TOTAL 0.2 mg/dL (0.2-2.0); CREATININE SERUM 1.2 mg/dL (0.6-1.4); GLOM FILT RATE Estimated 44.5 mL/min (>60); POTASSIUM 4.2 mmol/L (3.5-5.1); PROTEIN TOTAL SERUM 5.7 g/dL (6.0-8.3)
[2016-05-06 06:40] LABS: HEMATOCRIT 25.1 % (35.0-45.0); HEMOGLOBIN 7.9 gm/dL (12.0-16.0); MEAN CELL VOLUME 91.6 FL (83-96); MEAN CORPUSCULAR HEMOGLOBIN 28.9 PG (28-34); MEAN CORPUSCULAR HGB CONC 31.5 g/dL (30-36); MEAN PLATELET VOLUME 7.9 FL (6.5-11.5); RED BLOOD COUNT 2.73 X10e (3.90-5.30); RED CELL DISTRIBUTION WIDTH 16.1 % (11.0-15.5); WHITE BLOOD COUNT 9.6 X10e3 (4.0-10.5)
[2016-05-06 06:45] LABS: INR 2.6; PROTHROMBIN TIME (PATIENT) 28.6 SECONDS (9.6-11.5)
[2016-05-06 07:07] LABS: CALCIUM SERUM 8.2 mg/dL (8.4-10.2); GLOM FILT RATE Estimated 55.5 mL/min (>60); POTASSIUM 4.7 mmol/L (3.5-5.1)
[2016-05-07 06:02] LABS: HEMATOCRIT 25.3 % (35.0-45.0); HEMOGLOBIN 8.2 gm/dL (12.0-16.0)
[2016-05-07 06:20] LABS: INR 3.3; PROTHROMBIN TIME (PATIENT) 36.3 SECONDS (9.6-11.5)
[2016-05-07 06:40] LABS: BUN/CREATININE RATIO 30.83; CALCIUM SERUM 8.2 mg/dL (8.4-10.2); CREATININE SERUM 1.2 mg/dL (0.6-1.4); GLOM FILT RATE Estimated 44.5 mL/min (>60); POTASSIUM 5.3 mmol/L (3.5-5.1)
[2016-05-08 00:14] LABS: HEMATOCRIT 25.4 % (35.0-45.0); HEMOGLOBIN 8.1 gm/dL (12.0-16.0)
[2016-05-08 00:24] LABS: INR 3.7; PROTHROMBIN TIME (PATIENT) 40.8 SECONDS (9.6-11.5)
[2016-05-08 04:03] LABS: HEMATOCRIT 25.4 % (35.0-45.0); HEMOGLOBIN 8.4 gm/dL (12.0-16.0); MEAN CELL VOLUME 91.7 FL (83-96); MEAN CORPUSCULAR HEMOGLOBIN 30.2 PG (28-34); MEAN CORPUSCULAR HGB CONC 32.9 g/dL (30-36); MEAN PLATELET VOLUME 8.2 FL (6.5-11.5); RED BLOOD COUNT 2.77 X10e (3.90-5.30); RED CELL DISTRIBUTION WIDTH 16.2 % (11.0-15.5); WHITE BLOOD COUNT 9.9 X10e3 (4.0-10.5)
[2016-05-08 04:14] LABS: BUN/CREATININE RATIO 44.44; CALCIUM SERUM 8.3 mg/dL (8.4-10.2); CREATININE SERUM 0.9 mg/dL (0.6-1.4); POTASSIUM 4.3 mmol/L (3.5-5.1)
[2016-05-09 05:50] LABS: HEMATOCRIT 26.3 % (35.0-45.0); HEMOGLOBIN 8.3 gm/dL (12.0-16.0); MEAN CORPUSCULAR HEMOGLOBIN 28.8 PG (28-34); MEAN CORPUSCULAR HGB CONC 31.7 g/dL (30-36); MEAN PLATELET VOLUME 7.6 FL (6.5-11.5); RED BLOOD COUNT 2.89 X10e (3.90-5.30); WHITE BLOOD COUNT 13.4 X10e3 (4.0-10.5)
[2016-05-09 06:03] LABS: INR 3.2; PROTHROMBIN TIME (PATIENT) 35.3 SECONDS (9.6-11.5)
[2016-05-09 07:00] LABS: BUN/CREATININE RATIO 46.66; CALCIUM SERUM 7.9 mg/dL (8.4-10.2); CREATININE SERUM 0.9 mg/dL (0.6-1.4); POTASSIUM 4.2 mmol/L (3.5-5.1)
[2016-05-10 07:20] LABS: INR 2.2; PROTHROMBIN TIME (PATIENT) 23.7 SECONDS (9.6-11.5)
[2016-05-11 06:16] LABS: HEMATOCRIT 24.3 % (35.0-45.0); HEMOGLOBIN 7.7 gm/dL (12.0-16.0); MEAN CELL VOLUME 91.9 FL (83-96); MEAN CORPUSCULAR HEMOGLOBIN 29.3 PG (28-34); MEAN CORPUSCULAR HGB CONC 31.8 g/dL (30-36); MEAN PLATELET VOLUME 7.6 FL (6.5-11.5); RED BLOOD COUNT 2.64 X10e (3.90-5.30); RED CELL DISTRIBUTION WIDTH 16.8 % (11.0-15.5); WHITE BLOOD COUNT 10.8 X10e3 (4.0-10.5)
[2016-05-11 06:25] LABS: INR 1.6; PROTHROMBIN TIME (PATIENT) 17.1 SECONDS (9.6-11.5)
[2016-05-11 06:30] LABS: BUN/CREATININE RATIO 43.33; CALCIUM SERUM 7.8 mg/dL (8.4-10.2); CREATININE SERUM 0.9 mg/dL (0.6-1.4); POTASSIUM 4.3 mmol/L (3.5-5.1)
[2016-05-12 11:26] LABS: HEMATOCRIT 27.2 % (35.0-45.0); HEMOGLOBIN 8.5 gm/dL (12.0-16.0)
[2016-05-12 12:56] LABS: INR 1.3; PROTHROMBIN TIME (PATIENT) 13.3 SECONDS (9.6-11.5)
== END 2016-05-12 18:40 | DRG 463 ==
LOC: C4C 21:10 → CICCU3 05-03 08:05 → C3A PCU 05-04 18:30
PROVIDERS: Family Medicine; Internal Medicine; Nurse Practitioner; Nurse Practitioner Family; Orthopaedic Surgery; Specialist
PROC: 0SPS0JZ Removal of Synthetic Substitute from Left Hip Joint, Femoral Surface, Open Approach (ICD-10-PCS; principal; 2016-04-28)
PROC: 0Q9 Lower Bones, Drainage (ICD-10-PCS; 2016-04-28)
PROC: B24BZZZ Ultrasonography of Heart with Aorta (ICD-10-PCS; 2016-05-03)
DX: T84.52XA Infection and inflammatory reaction due to internal left hip prosthesis, initial encounter (principal); G92 Toxic encephalopathy; N17.9 Acute kidney failure, unspecified; J96.01 Acute respiratory failure with hypoxia; J96.02 Acute respiratory failure with hypercapnia; E87.2 Acidosis; J44.0 Chronic obstructive pulmonary disease with (acute) lower respiratory infection; I50.32 Chronic diastolic (congestive) heart failure; B99.9 Unspecified infectious disease; J44.1 Chronic obstructive pulmonary disease with (acute) exacerbation; E44.1 Mild protein-calorie malnutrition; I10 Essential (primary) hypertension; E78.5 Hyperlipidemia, unspecified; K21.9 Gastro-esophageal reflux disease without esophagitis; F32.9 Major depressive disorder, single episode, unspecified; Z79.01 Long term (current) use of anticoagulants; Z95.810 Presence of automatic (implantable) cardiac defibrillator; Z95.1 Presence of aortocoronary bypass graft; M19.90 Unspecified osteoarthritis, unspecified site; Z90.710 Acquired absence of both cervix and uterus; Z87.891 Personal history of nicotine dependence; E87.5 Hyperkalemia; Z79.82 Long term (current) use of aspirin; J20.9 Acute bronchitis, unspecified; Z88.0 Allergy status to penicillin; E11.65 Type 2 diabetes mellitus with hyperglycemia; E83.51 Hypocalcemia
CPT/HCPCS: 36600; 71010; 71020; 73501; 73502; 73610; 73630; 73701-LT; 76937; 77001; 80048; 80053; 80202; 81003; 82308; 82803; 82947; 83605; 83735; 83880; 84484; 85014; 85018; 85025; 85027; 85610; 85652; 86140; 86850; 86900; 86901; 86923; 87070; 87075; 87086; 87205; 87449; 87899; 93005; 93306; 94640; 94660; 94760; 97110; 97116; 97163; 97167; 97530; 97535; C1874; G8978-GP; G8979-GP; G8980-GP; G8987-GO; G8988-GO; J0330; J0692; J1170; J1650; J1815; J1940; J2250; J2405; J2920; J2930; J3010; J3370; J3430; J3475; Q9967